=== PATIENT | female | born 1950 | race Two or more races ===

== ENCOUNTER 2023-11-08 08:28 | Outpatient (RCR) | payer SELFPAY | END 2023-11-08 23:59 | disposition home or self-care (01) | LOC: ROT 08:28 | PROVIDERS: ATTENDING PHYSICIAN Psychiatry & Neurology Neurology | DX: G20.A1 Parkinson's disease without dyskinesia, without mention of fluctuations (principal) ==

== ENCOUNTER 2024-01-05 09:15 | Outpatient (RCR) | payer SELFPAY | END 2024-01-05 23:59 | disposition home or self-care (01) | LOC: ROT 09:15 | PROVIDERS: ATTENDING PHYSICIAN Psychiatry & Neurology Neurology | DX: G20.A1 Parkinson's disease without dyskinesia, without mention of fluctuations (principal) ==

== ENCOUNTER 2024-03-22 11:03 | Outpatient (RCR) | payer SELFPAY | END 2024-03-22 23:59 | disposition home or self-care (01) | LOC: ROT 11:03 | PROVIDERS: ATTENDING PHYSICIAN Psychiatry & Neurology Neurology | DX: G20.A1 Parkinson's disease without dyskinesia, without mention of fluctuations (principal) ==

== ENCOUNTER 2024-04-04 13:17 | Outpatient (RCR) | payer MEDICARE, OTHER, SELFPAY | END 2024-04-04 23:59 | disposition home or self-care (01) | LOC: RPT 13:17 | PROVIDERS: ATTENDING PHYSICIAN Internal Medicine | DX: R26.9 Unspecified abnormalities of gait and mobility (principal); M54.17 Radiculopathy, lumbosacral region; R26.89 Other abnormalities of gait and mobility; Z73.6 Limitation of activities due to disability | CPT/HCPCS: 97110; 97112; 97163 ==

== ENCOUNTER 2024-05-10 12:11 | Outpatient (RCR) | payer MEDICARE, OTHER, SELFPAY | END 2024-05-10 23:59 | disposition home or self-care (01) | LOC: ROT 12:11 | PROVIDERS: ATTENDING PHYSICIAN Psychiatry & Neurology Neurology | DX: G20.A1 Parkinson's disease without dyskinesia, without mention of fluctuations (principal) ==

== ENCOUNTER 2024-05-15 11:27 | Outpatient (RCR) | payer MEDICARE, OTHER, SELFPAY | END 2024-05-15 23:59 | disposition home or self-care (01) | LOC: RPT 11:27 | PROVIDERS: ATTENDING PHYSICIAN Internal Medicine | DX: M54.17 Radiculopathy, lumbosacral region (principal); R26.89 Other abnormalities of gait and mobility; Z73.6 Limitation of activities due to disability | CPT/HCPCS: 97110; 97112; 97116; 97530 ==

== ENCOUNTER 2024-06-14 10:23 | Outpatient (RCR) | payer MEDICARE, OTHER, SELFPAY | END 2024-06-14 23:59 | disposition home or self-care (01) | LOC: RPT 10:23 | PROVIDERS: ATTENDING PHYSICIAN Internal Medicine | DX: R26.9 Unspecified abnormalities of gait and mobility (principal); M54.17 Radiculopathy, lumbosacral region; R26.89 Other abnormalities of gait and mobility; Z73.6 Limitation of activities due to disability | CPT/HCPCS: 97110; 97112; 97116; 97530 ==

== ENCOUNTER 2024-06-21 06:12 | Outpatient (RCR) | payer SELFPAY | END 2024-06-21 23:59 | disposition home or self-care (01) | LOC: ROT 06:12 | PROVIDERS: ATTENDING PHYSICIAN Psychiatry & Neurology Neurology | DX: G20.A1 Parkinson's disease without dyskinesia, without mention of fluctuations (principal) ==

== ENCOUNTER 2024-06-28 12:52 | Outpatient (RCR) | payer MEDICARE, OTHER, SELFPAY | END 2024-06-28 23:59 | disposition home or self-care (01) | LOC: RPT 12:52 | PROVIDERS: ATTENDING PHYSICIAN Internal Medicine | DX: R26.9 Unspecified abnormalities of gait and mobility (principal); M54.17 Radiculopathy, lumbosacral region; R26.89 Other abnormalities of gait and mobility; Z73.6 Limitation of activities due to disability | CPT/HCPCS: 97110; 97112; 97116; 97530 ==

== ENCOUNTER 2024-07-26 11:39 | Outpatient (RCR) | payer MEDICARE, OTHER, SELFPAY | END 2024-07-26 13:21 | disposition home or self-care (01) | LOC: RPT 11:39 | PROVIDERS: ATTENDING PHYSICIAN Internal Medicine | DX: R26.9 Unspecified abnormalities of gait and mobility (principal); M54.17 Radiculopathy, lumbosacral region; R26.89 Other abnormalities of gait and mobility; Z73.6 Limitation of activities due to disability; G20.A1 Parkinson's disease without dyskinesia, without mention of fluctuations; R26.2 Difficulty in walking, not elsewhere classified | CPT/HCPCS: 97110; 97112; 97116 ==

== ENCOUNTER 2024-08-09 06:37 | Outpatient (RCR) | payer SELFPAY | END 2024-08-09 23:59 | disposition home or self-care (01) | LOC: RPT 06:37 | PROVIDERS: ATTENDING PHYSICIAN Psychiatry & Neurology Neurology | DX: G20.C Parkinsonism, unspecified (principal); R26.89 Other abnormalities of gait and mobility ==

== ENCOUNTER 2024-10-18 08:00 | Outpatient (RCR) | payer SELFPAY | END 2024-10-19 10:58 | disposition home health service (06) | LOC: ROT 08:00 | PROVIDERS: ATTENDING PHYSICIAN Psychiatry & Neurology Neurology | DX: G20.A1 Parkinson's disease without dyskinesia, without mention of fluctuations (principal); Z73.6 Limitation of activities due to disability ==

== ENCOUNTER 2024-11-29 07:32 | Outpatient (RCR) | payer SELFPAY | END 2024-12-03 12:57 | disposition home or self-care (01) | LOC: ROT 07:32 | PROVIDERS: ATTENDING PHYSICIAN Psychiatry & Neurology Neurology | DX: G20.A1 Parkinson's disease without dyskinesia, without mention of fluctuations (principal) ==

== ENCOUNTER 2025-01-17 06:38 | Outpatient (RCR) | payer SELFPAY | END 2025-01-17 23:59 | disposition home or self-care (01) | LOC: ROT 06:38 | PROVIDERS: ATTENDING PHYSICIAN Psychiatry & Neurology Neurology | DX: G20.A1 Parkinson's disease without dyskinesia, without mention of fluctuations (principal); M54.17 Radiculopathy, lumbosacral region; R26.89 Other abnormalities of gait and mobility; Z73.6 Limitation of activities due to disability ==

== ENCOUNTER 2025-03-07 06:10 | Outpatient (RCR) | payer SELFPAY | END 2025-03-07 23:59 | disposition home or self-care (01) | LOC: ROT 06:10 | PROVIDERS: ATTENDING PHYSICIAN Psychiatry & Neurology Neurology | DX: G20.A1 Parkinson's disease without dyskinesia, without mention of fluctuations (principal) ==

== ENCOUNTER 2025-04-25 08:39 | Outpatient (RCR) | payer SELFPAY | END 2025-04-25 23:59 | disposition home or self-care (01) | LOC: ROT 08:39 | PROVIDERS: ATTENDING PHYSICIAN Psychiatry & Neurology Neurology | DX: G20.A1 Parkinson's disease without dyskinesia, without mention of fluctuations (principal) ==

== ENCOUNTER 2025-06-13 07:34 | Outpatient (RCR) | payer SELFPAY | END 2025-06-13 23:59 | disposition home or self-care (01) | LOC: RPT 07:34 | PROVIDERS: ATTENDING PHYSICIAN Psychiatry & Neurology Neurology | DX: G20.A1 Parkinson's disease without dyskinesia, without mention of fluctuations (principal) ==

== ENCOUNTER 2025-09-19 06:19 | Outpatient (RCR) | payer SELFPAY | END 2025-09-19 23:59 | disposition home or self-care (01) | LOC: ROT 06:19 | PROVIDERS: ATTENDING PHYSICIAN Psychiatry & Neurology Neurology | DX: G20.A1 Parkinson's disease without dyskinesia, without mention of fluctuations (principal) ==